=== PATIENT | female | born 1960 | race Hispanic/Latino ===

== ENCOUNTER 2022-06-01 17:34 | Emergency (ER) | payer BC ==
[~2022-06-01] VITALS: Ht 162.6 cm; Wt 74.8 kg
[2022-06-01 17:47] VITALS: BP 151/79
[2022-06-01] MEDS ORDERED: IBUP-1493 PO (21:43)
== END 2022-06-01 22:12 | disposition home or self-care (01) ==
LOC: EDH 17:34
DX: S80.211A Abrasion, right knee, initial encounter (principal); E03.9 Hypothyroidism, unspecified; I10 Essential (primary) hypertension; Z95.5 Presence of coronary angioplasty implant and graft; W01.0XXA Fall on same level from slipping, tripping and stumbling without subsequent striking against object, initial encounter; Y93.89 Activity, other specified; Y92.89 Other specified places as the place of occurrence of the external cause; Y99.8 Other external cause status
CPT/HCPCS: 73030; 73562